=== PATIENT | female | born 1965 | race Caucasian/White ===

== ENCOUNTER 2023-10-14 20:08 | Emergency (ER) | payer BC, MEDICAID, SELFPAY ==
--- NOTE | 2023-10-14 20:28 | ED.GENADULT ---
HPI - General Adult General Chief complaint: Extremity Pain/Injury, Lower Stated complaint: Fall, injury to both ankles and knee Time Seen by Provider: 10/14/23 20:28 History of Present Illness HPI narrative: CC: Bilateral Ankle Pain, Left Knee Pain pt. fell off curb rolling both of her ankles and landing on left knee. denies hitting head. able to bear some weight. 57-year-old woman presenting to the emergency department after a fall injuring both ankles and her left knee. Did not hit her head. There was no loss of conscious. No neck or back pain. Was on her way to [place] in her yd and tripped over a berm of some sort rolling both ankles. Pain radiates in particular up her left lower leg. She crawled into the house she said. Has taken some ibuprofen. They got Toro wraps and wraped her ankles. Related Data Previous Rx's ?Medication ?Instructions ?Recorded Walker- 2 Wheels #1 ea 10/21/23 aspirin 81 mg tablet,delayed 81 mg PO BID DVT Prophylaxis 10/21/23 release days #42 tabs Allergies Allergy/AdvReac Type Severity Reaction Status Date / Time No Known Drug Allergies Allergy Verified 11/03/23 13:24 Review of Systems Status of ROS: Reports: 6 or more systems reviewed and unremarkable except as noted in History and below [facility] Surgical History (Updated 10/26/23 @ 14:24 by Mayra Rowan ~ [facility]) Closed fracture of left distal fibula (~10/21/23) ?S82.832A - Other fracture of upper and lower end of left fibula, initial encounter for closed fracture (ICD-10) Hx of cholecystectomy ?Z90.49 - Acquired absence of other specified parts of digestive tract (ICD-10) Family History (Updated 10/26/23 @ 09:01 by Brianna Anderson) Father Cardiomyopathy A-fib Skin cancer Mother Lung cancer Brother DVT (deep venous thrombosis) Son Asthma Social History (Updated 10/20/23 @ 13:55 by Lyla Coburn PA-C) Narrative: . [place]. ( 2 boys, 22 yo, 21 yo). Works as a building cleaner at [employer]; PT Alcohol- occasional to minimal Never smoker Denies recreational drugs Smoking Status: Never smoker Do you use any of these nicotine containing products: None How often do you have a drink containing alcohol: monthly or less Alcohol type: beer, wine and hard liquor How many standard drinks containing alcohol do you have on a typical day: 1 or 2 How often do you have six or more drinks on one occasion: Never AUDIT-C Alcohol total score: 1 Non-prescribed substance use: denies use Caffeine: Yes Are you using contraception or practicing any form of control: No Exam Narrative: Exam Narrative: Pleasant. NAD. Overweight. Head looks atraumatic. She is breathing easily. Seated in a wheelchair. Left knee with brought abrasion and purpling of bruising across the anterior knee. There is mild tenderness to palpation here. Particularly tender at the distal aspect of the left fibula broadly. Soft swelling about the lateral malleolus. The right ankle is more swollen and tender in the upper posterior distal fibula. No instability appreciated to anterior posterior or mediolateral stressors. In neither foot is there pain at the navicular or base of the 5th metatarsal. No medial malleolar pain in either side. Const: Vital Signs, click to edit/add: Vital Signs - 24 hr 10/14/23 20:33 Temperature 98.2 F Pulse Rate [Right Pulse Oximeter] 94 Respiratory Rate 20 Blood Pressure [Ri ght Upper Arm] 174/81 H Pulse Oximetry 97 Oxygen Delivery Me thod Room Air Documenting provider has reviewed patient's vital signs: yes Course Vital Signs Vital signs: Initial Vital Signs Temperature 98.2 F 10/14/23 20:33 Temperature Source Temporal Artery Scan 10/14/23 20:33 Pulse Rate 94 10/14/23 20:33 Respiratory Rate 20 10/14/23 20:33 Blood Pressure 174/81 H 10/14/23 20:33 Blood Pressure Mean 112 H 10/14/23 20:33 Blood Pressure Position Sitting 10/14/23 20:33 Pulse Oximetry 97 10/14/23 20:33 Oxygen Delivery Method Room Air 10/14/23 20:33 Vital Signs Temperature 98.2 F 10/14/23 20:33 Pulse Rate 94 10/14/23 20:33 Respiratory Rate 20 10/14/23 20:33 Blood Pressure 174/81 H 10/14/23 20:33 Pulse Oximetry 97 10/14/23 20:33 Oxygen Delivery Method Room Air 10/14/23 20:33 Temperature 98.2 F 10/14/23 20:33 Pulse Rate 94 10/14/23 20:33 Respiratory Rate 20 10/14/23 20:33 Blood Pressure 174/81 H 10/14/23 20:33 Pulse Oximetry 97 10/14/23 20:33 Oxygen Delivery Method Room Air 10/14/23 20:33 Medical Decision Making MDM Narrative Medical decision making narrative: Ordered for ice pack. I would anticipate a fracture in the left ankle at least. Will image both left knee knee and bilateral ankles. Does not appear to have sustained other injuries. Review of x-rays by me reveals maintained mortise bilaterally. She has nondisplaced oblique fractures of the distal fibula and distal tibia. There is also a nondisplaced fracture at the proximal fibula of the left knee. Knee cap deviates laterally on sunrise but does not appear to be fractured. A challenge here will be mobilization. We not have any air cast but will probably need more support in the right ankle in order to be nonweightbearing on the left leg while using crutches. Have discussed this case with orthopedics. Recommendations as above. Will also put a Kalin Mccullough splint on the left ankle. Applied this ortho glass Kalin Mccullough splint. Attempted crutching a but to difficult with Toro wrapped right ankle. Will be reattempting crutching with cam walker boot on the right ankle. This went better. See patient discharge plan for further discussion Discharge Plan Discharge Clinical Impression: Ankle sprain and strain, Closed tibial fracture, Closed fibular fracture, Contusion of knee, Abrasion Patient Disposition: Home w/ Parent or Adult Condition: Stable Additional Instructions: You do not have to wear this cam walker. This is just to help you mobilize in the short term. Can remove it and apply an Toro wrap. I would ice sore areas as discussed a couple of times, maybe a few times daily over the next few days. Elevate for comfort. Expect a call on Tuesday morning from Orthopedics for follow-up. Their phone #[phone] Avoid walking on your left leg. Hopefully you can manage your crutches but you might need a wheelchair in the short term. See handout on rehabilitation for ankle sprain. Not all is relevant but a lot of it would be. Prescriptions: No Action aspirin 81 mg tablet,delayed release (DR/EC) 81 mg PO BID 21 Days Qty: 42 0RF (DME) Walker- 2 Wheels Misc See Rx Instructions .Route Qty: 1 0RF Rx Instructions: As directed Follow Up/Referrals: Provider,Not a Local [Primary Care Provider] - Stand Alone Forms: MyHealth Info Instructions
[2023-10-14 20:33] VITALS: BP 174/81; PULSE 94; RESP 20; TEMP 36.8; O2SAT 97; BMI 37.1
--- NOTE | 2023-10-14 20:43 | CRLHL7_ITS ---
For Patients: As a result of the Century Cures Act, medical imaging exams and procedure reports are released immediately into your electronic medical record. You may view this report before your referring provider. If you have questions, please contact your health care provider. INDICATION: Trauma. TECHNIQUE: Left knee radiographs, 3 views. COMPARISON: None. FINDINGS: Acute mildly displaced fracture of the proximal left fibula neck. The tibia appears intact. Mild degeneration of the left knee joint. No significant joint effusion. Lateral subluxation of patella in the patellofemoral compartment with associated degenerative changes, raising the possibility of maltracking. No significant soft tissue edema or radiopaque foreign bodies. IMPRESSION: Acute moderately displaced fracture of the proximal left fibular neck. Dictated by Aureliano Starr MD @ 10/14/2023 10:42:33 PM (Electronically Signed)
--- NOTE | 2023-10-14 20:43 | CRLHL7_ITS ---
For Patients: As a result of the Century Cures Act, medical imaging exams and procedure reports are released immediately into your electronic medical record. You may view this report before your referring provider. If you have questions, please contact your health care provider. INDICATION: Trauma. TECHNIQUE: Left ankle radiographs, 3 views. COMPARISON: None. FINDINGS: Linear lucency involving the distal left fibular shaft and lateral aspect of the tibial plafond without cortical discontinuity, possibly sequelae of remote trauma. No acute displaced fractures identified. Mild soft tissue edema overlying the lateral malleolus. The talar dome remains smooth. The ankle mortise joint spaces otherwise preserved. Small plantar calcaneal osteophyte. No radiopaque foreign bodies. IMPRESSION: 1. Linear lucency involving the distal left fibular shaft appears contiguous with the lateral tibial plafond and does not appear to be associated with cortical discontinuity to suggest an acute displaced fracture. Mild nonspecific soft tissue swelling overlying the lateral malleolus. Correlate with point tenderness, consider CT for improved characterization if clinically warranted. 2. No definite acute displaced fractures identified. Dictated by Aureliano Starr MD @ 10/14/2023 10:35:06 PM (Electronically Signed)
--- NOTE | 2023-10-14 20:43 | CRLHL7_ITS ---
For Patients: As a result of the Century Cures Act, medical imaging exams and procedure reports are released immediately into your electronic medical record. You may view this report before your referring provider. If you have questions, please contact your health care provider. INDICATION: Trauma. TECHNIQUE: Right ankle radiographs, 3 views. COMPARISON: None. FINDINGS: No acute fractures or dislocation. The joint spaces are preserved. The talar dome remains intact. The ankle mortise joint space is preserved. The calcaneus is intact Moderate diffuse soft tissue edema, nonspecific. IMPRESSION: Moderate nonspecific soft tissue swelling. No acute fractures or dislocation. Dictated by Aureliano Starr MD @ 10/14/2023 10:36:33 PM (Electronically Signed)
== END 2023-10-14 23:08 | disposition home or self-care (01) ==
PROVIDERS: Emergency Provider Family Medicine
DX: S82.832A Other fracture of upper and lower end of left fibula, initial encounter for closed fracture (principal); S80.02XA Contusion of left knee, initial encounter; W18.30XA Fall on same level, unspecified, initial encounter
CPT/HCPCS: 73562; 73610; 99283; 99284

== ENCOUNTER 2023-10-18 15:02 | Outpatient (CLI) | payer BC, MEDICAID, SELFPAY ==
--- NOTE | 2023-10-18 16:00 | CRLHL7_ITS ---
For Patients: As a result of the Century Cures Act, medical imaging exams and procedure reports are released immediately into your electronic medical record. You may view this report before your referring provider. If you have questions, please contact your health care provider. INDICATION: Injury. Characterize fracture. COMPARISON: None provided. TECHNIQUE: Multidetector imaging with axial, coronal and sagittal reformats. FINDINGS: Intra-articular oblique vertical fracture through the anterior lateral plafond. 3 mm diastasis and less than 1 mm elevation at the articular cortex. Small/Moderate-sized joint effusion. No intra-articular body. Oblique hairline fracture in the fibular metaphysis. No widening of the syndesmosis. Medial clear space is maintained. The joints of the hindfoot appear normal. Midfoot joints appear normal. Os calcis spur. Fusiform enlargement of the Achilles tendon for likely chronic tendinosis. IMPRESSION: 1. Acute intra-articular fracture of the anterior lateral tibial plafond. Nondisplaced fracture distal fibular metaphysis. Small/moderate ankle joint effusion. Anatomic alignment of the mortise. 2. Likely chronic mild Achilles tendinopathy. Please note that all CT scans at this facility use dose modulation, iterative reconstruction, and/or weight-based dosing when appropriate to reduce radiation dose to as low as reasonably achievable. Dictated by Jordy Eng MD @ 10/19/2023 10:44:35 AM (Electronically Signed)
== END 2023-10-18 15:03 | disposition home or self-care (01) ==
PROVIDERS: Visit Provider Orthopaedic Surgery
DX: S82.892A Other fracture of left lower leg, initial encounter for closed fracture (principal); S82.292A Other fracture of shaft of left tibia, initial encounter for closed fracture; M25.472 Effusion, left ankle
CPT/HCPCS: 73700

== ENCOUNTER 2023-10-21 07:03 | Day surgery (SDC) | payer BC, MEDICAID, SELFPAY ==
[2023-10-21] VITALS (16 sets, daily range): BP systolic 89–149; BP diastolic 53–86; PULSE 53–87; RESP 16; TEMP 36.1–37.3; O2SAT 95–100; BMI 49.1
[2023-10-21] MEDS: SODIUM CHLORIDE 0.9 % (FLUSH) 10 ML SYRINGE IVF (08:20)
[2023-10-21] MEDS: LACTATED RINGERS 1000 ML 1,000 ML 100 ML IV (08:20)
[2023-10-21] MEDS: fentaNYL 100 MCG/2 ML inj IVP (09:18)
[2023-10-21] MEDS: MIDAZOLAM HCL 1 MG/ML inj IVP (09:18)
--- NOTE | 2023-10-21 09:24 | SUR.PREOP ---
TIME?OUT:?915 PT/Teagan Gupta RN/Dr. Bobby MDA?VERIFICATION?OF?SURGICAL?SITE left ankle,?PROCEDURE,?AND?CONSENT OBTAINED?PRIOR?TO?INVASIVE?PROCEDURE.
--- NOTE | 2023-10-21 09:45 | CRLHL7_ITS ---
For Patients: As a result of the Cures Act, medical imaging exams and procedure reports are released immediately into your electronic medical record. You may view this report before your referring provider. If you have questions, please contact your health care provider. Indication: ORIF ANKLE Technique: Two views left ankle. Fluoroscopic time 12.7 seconds. IMPRESSION: Fluoroscopic guidance for open reduction internal fixation the distal tibial fracture. Dictated by Marcin Williamson MD @ 10/21/2023 3:08:29 PM (Electronically Signed)
--- NOTE | 2023-10-21 09:46 | P.NB_ITS ---
Nerve Block Nerve Block Time Seen by Provider: 09:28 Date Seen: 10/21/23 Type of block requested by surgeon for post-operative analgesia: popliteal Side: left Time out performed: Yes Verification of patient name: Yes Verification of date of : Yes Site marking: site marked Name of person performing procedure: Bobby Continuous monitoring Was continuous monitoring of O2 sat, B/P, quality assurance monitor, recorded every 15 minutes?: Yes Procedure Checklist: sterile prep, needles and gloves Ultrasound guided. Images saved: Yes Medications given in 5ml increments after negative aspiration: Marcaine %: 0.5 mL: 20 Needle gauge: 20 Patient tolerated procedure well: Yes Additional comments: Needle noted adjacent to nerve Block Charges Block Charge (with Pro Fee): Sciatic Nerve Use of Ultrasound Machine for Block: Yes- US Guidance/pain block
--- NOTE | 2023-10-21 09:47 | P.NB_ITS ---
Nerve Block Nerve Block Time Seen by Provider: 09:28 Date Seen: 10/21/23 Type of block requested by surgeon for post-operative analgesia: adductor canal Side: left Time out performed: Yes Verification of patient name: Yes Verification of date of : Yes Site marking: site marked Name of person performing procedure: Bobby Continuous monitoring Was continuous monitoring of O2 sat, B/P, automotive heavy mechanic, recorded every 15 minutes?: Yes Procedure Checklist: sterile prep, needles and gloves Ultrasound guided. Images saved: Yes Medications given in 5ml increments after negative aspiration: Ropivicaine %: 0.5 mL: 20 Needle gauge: 20 Decadron (mg): 10 Precedex (mcg): 25 Patient tolerated procedure well: Yes Additional comments: Needle noted adjacent to nerve Block Charges Block Charge (with Pro Fee): Femoral Nerve Use of Ultrasound Machine for Block: Yes- US Guidance/pain block
--- NOTE | 2023-10-21 09:47 | W.ANESCHARGE ---
Anesthesia Charges Start Date/Time Anesthesia Start Date: 10/21/23 Anesthesia Start Time: 10:58 Stop Date/Time Anesthesia Stop Date: 10/21/23 Anesthesia Stop Time: 12:23
--- NOTE | 2023-10-21 10:06 | W.PM.H&PU ---
History & Physical Update History & Physical Update H&P Reviewed and patient assessed: No changes noted
--- NOTE | 2023-10-21 10:51 | PM.ORPRC ---
Procedure Note Date of procedure: 10/21/23 Procedure: PREOPERATIVE DIAGNOSES: 1. Closed, displaced, left anterolateral tibial plafond fracture 2. Closed, nondisplaced, left distal fibula fracture POSTOPERATIVE DIAGNOSES: 1. Closed, displaced, left anterolateral tibial plafond fracture 2. Closed, nondisplaced, left distal fibula fracture PROCEDURE: 1. Left ankle open reduction with internal fixation. 2. Intraoperative fluoroscopy <53 minutes (CPT CODE 7600) SURGEON: Kobi Franco MD RETURNED GOODS RECEIVING CLERK: Elio Zamorano; An inventory control assistant was critical for this case to aide in patient positioning, leg manipulation, tissue retraction, closure, and splinting. ANESTHESIA: Spinal with popliteal nerve block IMPLANTS: 4.0 mm x 38 mm partially-threaded cannulated screw with washer. TOURNIQUET: 28 minutes at 250 mmHg. INDICATIONS: The patient is a pleasant 57-year-old male who sustained a left ankle injury in the 1 week ago.. Workup included x-rays and CT scan which revealed a mildly displaced anterior lateral tibial plafond fracture nondisplaced distal fibula fracture. Given these findings, surgery was recommended to reduce and stabilize the tibial plafond fracture to allow for anatomic healing. FINDINGS: Closed, mildly displaced anterior lateral tibial plafond fracture and a nondisplaced oblique distal fibular fracture. Intact syndesmosis. PROCEDURE: Following a thorough discussion of the risks, benefits, and alternatives to surgery; informed consent was obtained, and the operative extremity was marked. Regional nerve block was performed by anesthesia staff . The patient was then brought to the operating room, where [spinal] anesthesia was administered. She was then placed supine on the operating table. 3 g IV Ancef was administered preoperatively for prophylaxis . The operative extremity was then prepped and draped in the appropriate sterile fashion . A surgical time-out was performed confirming patient identity, surgical site, and surgical procedure. The operative extremity was elevated and exsanguinated, and the tourniquet inflated to 250 mmHg. A longitudinal incision was made overlying the anterior lateral ankle centered between the tibia and fibula. Sharp incision was carried through skin and subcutaneous tissue. Small traversing veins were cauterized, and care was taken to protect the neurovascular structures throughout the course of procedure. The deep fascia was incised line with the incision. The fracture was identified. Exercise was irrigated normal saline and cleared of interposed periosteum and fracture hematoma. The fracture was reduced. Using fluoroscopic guidance, the guidewire for the 4-0 cannulated screw was placed perpendicular across the fracture site. This was overdrilled with 2.6 mm drill and a 4.0 mm x 38 mm partially-threaded cannulated screw with washer was placed over the guidewire. Fluoroscopic imaging confirmed anatomic reduction of the fracture and the guidewire was subsequent removed. The distal fibular fracture remained nondisplaced and the syndesmosis was intact. At this stage, the wound was thoroughly irrigated with normal saline. Deep subcutaneous tissues were closed with 2-0 Vicryl [id number] interrupted sutures. The tourniquet was deflated. Total tourniquet time was 28 minutes. Hemostasis achieved with electrocautery. Subcutaneous tissues were closed with 2-0 Vicryl for the subcutaneous tissues, and 2-0 stratafix for subcuticular layers completed the closure. Dermabond was applied followed by application of sterile dressings and a bulky Mccullough splint. The patient was awoken from anesthesia and transferred to the PACU in stable condition. PLAN: 1. Ice and elevate operative extremity. 2. Keep splint clean and dry 3. [place] for pain as needed. 4. Nonweightbearing left lower extremity. 5. Discharge home. 6. Follow up in orthopedic clinic in 10-14 days for splint removal and wound check. 7. We will convert back to Cam boot and initiate formal physical therapy for gentle ankle range of motion exercises after the 1st postoperative visit. Will need to remain nonweightbearing on the left lower extremity for total of 6 weeks postoperatively.
[2023-10-21] MEDS: CEFAZOLIN 2 GM INJ IVP (11:09)
--- NOTE | 2023-10-21 11:10 | W.ANESCHARGE ---
Anesthesia Charges Start Date/Time Anesthesia Start Date: 10/21/23 Anesthesia Start Time: 10:58 Stop Date/Time Anesthesia Stop Date: 10/21/23 Anesthesia Stop Time: 12:23
--- NOTE | 2023-10-21 11:31 | SUR.OPER ---
PATIENT QUESTIONS ANSWERED SATISFACTORILY PREOPERATIVELY.? PATIENT BROUGHT TO OR #4 PER CART.? Patient positioned supine on OR #4 bed.? The perioperative?team supported arms bilaterally on arm boards.? Final approval of positioning by surgeon.?
== END 2023-10-21 14:18 | disposition home or self-care (01) ==
PROVIDERS: Visit Provider Orthopaedic Surgery
PROC: (CPT 27828; principal; 2023-10-21 09:45)
DX: S82.872A Displaced pilon fracture of left tibia, initial encounter for closed fracture (principal); S82.832A Other fracture of upper and lower end of left fibula, initial encounter for closed fracture; G89.18 Other acute postprocedural pain
CPT/HCPCS: 27828; 01480; 64445; 64447; 73600; 76000; 76942; A4580; C1713; J0665; J0690; J1100; J2250; J2704; J2795; J3010; J7120

== ENCOUNTER 2024-01-12 10:30 | Outpatient (RCR) | payer BC, MEDICAID, SELFPAY | END 2024-01-12 11:32 | disposition home or self-care (01) | PROVIDERS: Visit Provider Orthopaedic Surgery | DX: S93.491A Sprain of other ligament of right ankle, initial encounter (principal); S82.832A Other fracture of upper and lower end of left fibula, initial encounter for closed fracture; M25.671 Stiffness of right ankle, not elsewhere classified; Z51.89 Encounter for other specified aftercare | CPT/HCPCS: 97110; 97112; 97116; 97140; 97161 ==